=== PATIENT | female | born 1935 | race Caucasian/White ===

== ENCOUNTER 2021-08-06 04:23 | Day surgery (SDC) | payer OTHER, BC ==
[2021-08-04 12:44] VITALS: BMI 23.6
[2021-08-06] MEDS ORDERED: IBUPROFEN 800 MG/8 ML IJ IVPB SCH (09:00)
[2021-08-06] MEDS ORDERED: DEXTROSE 5%-0.45% SALINE 1,000 ML IV SCH (09:00)
[2021-08-06] MEDS ORDERED: PROPOFOL 20 ML ONE (09:06)
[2021-08-06] MEDS ORDERED: ceFAZolin SODIUM 1 GM VIAL IVPB ONE (09:30)
[2021-08-06] MEDS ORDERED: IOHEXOL 300 MG/ML INFUS..BTL IJ ONE ×2 (09:42)
[2021-08-06] MEDS ORDERED: LACTATED RINGERS SOLUTION 1,000 ML IV SCH (10:00)
[2021-08-06 10:44] VITALS: TEMP 98.8
[2021-08-06 12:17] VITALS: BP 142/74; PULSE 80
== END 2021-08-06 12:18 | disposition home or self-care (01) ==
LOC: JASU-SURG 04:23
PROVIDERS: ATTEND Urology
PROC: 0TJB8ZZ Inspection of Bladder, Via Natural or Artificial Opening Endoscopic (ICD-10-PCS; principal; 2021-08-06 08:30)
PROC: BT0BYZZ Plain Radiography of Bladder and Urethra using Other Contrast (ICD-10-PCS; 2021-08-06 08:30)
DX: N39.0 Urinary tract infection, site not specified (principal)
CPT/HCPCS: 76000-TC-FY; 94760

== ENCOUNTER 2022-10-09 04:14 | Day surgery (SDC) | payer OTHER, BC ==
[2022-10-06 10:52] VITALS: BMI 23.6
[~2022-10-09 04:14] MED LIST: LIDOCAINE 1% P/F 10 MG/ML VIAL INF ONE; LIDOCAINE 1% P/F 10 MG/ML VIAL PNB ONE
[2022-10-09] MEDS ORDERED: LIDOCAINE HCL/PF 1% SDV 5ML VIAL ONE (07:34)
[2022-10-09 08:06] VITALS: RESP 18
[2022-10-09] MEDS ORDERED: LIDOCAINE 1% P/F 10 MG/ML VIAL INF ONE ×2 (08:57)
[2022-10-09 10:21] VITALS: BP 143/48; PULSE 56; TEMP 97.7
== END 2022-10-09 10:45 | disposition home or self-care (01) ==
LOC: JASU-SURG 04:14
PROVIDERS: ATTEND Pain Medicine Pain Medicine
PROC: 01HY3MZ Insertion of Neurostimulator Lead into Peripheral Nerve, Percutaneous Approach (ICD-10-PCS; principal; 2022-10-09 09:30)
DX: G89.4 Chronic pain syndrome (principal); M54.9 Dorsalgia, unspecified
CPT/HCPCS: 64555; C1778; 76000-TC-FY

== ENCOUNTER 2023-01-20 16:31 | Emergency (ER) | payer OTHER, BC ==
[2023-01-20 16:56] VITALS: BP 170/68; PULSE 79; RESP 20; TEMP 98.2; BMI 23.6
[2023-01-20] MEDS ORDERED: DIPHTH,PERTUSS(ACELL),TET 0.5 ML DISP.SYRIN IM ONE ×2 (18:17→19:33)
== END 2023-01-20 19:53 | disposition home or self-care (01) ==
LOC: FER 16:31
PROC: 3E0234Z Introduction of Serum, Toxoid and Vaccine into Muscle, Percutaneous Approach (ICD-10-PCS; principal; 2023-01-20)
DX: S02.2XXA Fracture of nasal bones, initial encounter for closed fracture (principal); S05.10XA Contusion of eyeball and orbital tissues, unspecified eye, initial encounter; S00.83XA Contusion of other part of head, initial encounter; W10.8XXA Fall (on) (from) other stairs and steps, initial encounter; W22.8XXA Striking against or struck by other objects, initial encounter; Y92.007 Garden or yard of unspecified non-institutional (private) residence as the place of occurrence of the external cause
CPT/HCPCS: 70450-TC; 70486-TC; 72125-TC; 90471; 90715; 99284-25

== ENCOUNTER 2023-10-29 04:27 | Day surgery (SDC) | payer OTHER, BC ==
[2023-10-21 12:36] VITALS: BMI 23.6
[2023-10-29] MEDS: IOHEXOL 180 MG/1 ML ML IJ ONE
[2023-10-29] MEDS: LIDOCAINE HCL 1% PRESERVATIVE FREE - 30ML VIAL IJ ONE
[2023-10-29] MEDS ORDERED: LIDOCAINE HCL/PF 1% SDV 5ML VIAL ONE (07:30)
[2023-10-29] MEDS ORDERED: BUPIVACAINE HCL/PF 0.5% (5MG/ML) 10 ML VIAL ONE (07:30)
[2023-10-29] MEDS ORDERED: ACETAMINOPHEN 500 MG TABLET (FP) PO PRN (08:31)
[2023-10-29] MEDS: BUPIVACAINE HCL/PF 0.5% (5MG/ML) 10 ML VIAL IJ ONE ×2 (10:43)
[2023-10-29 11:15] VITALS: RESP 18
[2023-10-29 13:19] VITALS: BP 138/62; PULSE 60; TEMP 98
== END 2023-10-29 12:08 | disposition home or self-care (01) ==
LOC: JASU-SURG 04:27
PROVIDERS: ATTEND Pain Medicine Pain Medicine
PROC: 3E0T33Z Introduction of Anti-inflammatory into Peripheral Nerves and Plexi, Percutaneous Approach (ICD-10-PCS; 2023-10-29)
PROC: 3E0T3BZ Introduction of Anesthetic Agent into Peripheral Nerves and Plexi, Percutaneous Approach (ICD-10-PCS; principal; 2023-10-29 10:45)
DX: M47.812 Spondylosis without myelopathy or radiculopathy, cervical region (principal)
CPT/HCPCS: 76000-TC-FY

== ENCOUNTER → 2023-12-07 | Day surgery (SDC) | payer OTHER, BC ==
[2023-12-02 12:22] VITALS: BMI 23.6
[~2023-12-07] MED LIST changes: +ACETAMINOPHEN 500 MG TABLET (FP) PO PRN; +BUPIVACAINE HCL/PF 0.5% (5MG/ML) 10 ML VIAL ONE; -LIDOCAINE 1% P/F 10 MG/ML VIAL INF ONE; -LIDOCAINE 1% P/F 10 MG/ML VIAL PNB ONE; +LIDOCAINE HCL/PF 1% SDV 5ML VIAL ONE
[2023-12-07] MEDS: BUPIVACAINE HCL/PF 0.75% 10 ML VIAL NR ONE
[2023-12-07] MEDS: LIDOCAINE 1% P/F 10 MG/ML VIAL INF ONE
[2023-12-07 08:54] VITALS: TEMP 98.3
[2023-12-07] MEDS: BUPIVACAINE HCL/PF 0.5% (5MG/ML) 10 ML VIAL IJ ONE (10:49)
[2023-12-07 12:12] VITALS: BP 147/53; PULSE 72; RESP 18
== END | disposition home or self-care (01) ==
LOC: JASU-SURG 04:36
PROVIDERS: ATTEND Pain Medicine Pain Medicine
PROC: 3E0T33Z Introduction of Anti-inflammatory into Peripheral Nerves and Plexi, Percutaneous Approach (ICD-10-PCS; 2023-12-07)
PROC: 3E0T3BZ Introduction of Anesthetic Agent into Peripheral Nerves and Plexi, Percutaneous Approach (ICD-10-PCS; principal; 2023-12-07 10:30)
DX: M47.812 Spondylosis without myelopathy or radiculopathy, cervical region (principal)
CPT/HCPCS: 76000-TC-FY

== ENCOUNTER 2023-12-31 04:24 | Day surgery (SDC) | payer OTHER, BC ==
[2023-12-23 15:53] VITALS: BMI 23.6
[~2023-12-31 04:24] MED LIST changes: -BUPIVACAINE HCL/PF 0.5% (5MG/ML) 10 ML VIAL ONE; -LIDOCAINE HCL/PF 1% SDV 5ML VIAL ONE
[2023-12-31] MEDS ORDERED: DEXAMETHASONE SOD PHOSPHATE 10 MG/1 ML VIAL ONE (07:30)
[2023-12-31] MEDS ORDERED: LIDOCAINE HCL/PF 2% SDV 5ML VIAL ONE (07:30)
[2023-12-31] MEDS ORDERED: BUPIVACAINE HCL/PF 0.5% (5MG/ML) 10 ML VIAL ONE (07:30)
[2023-12-31] MEDS ORDERED: LIDOCAINE HCL/PF 1% SDV 5ML VIAL ONE (07:30)
[2023-12-31] MEDS: LIDOCAINE HCL/PF 2% SDV 5ML VIAL SQ ONE ×2 (13:29→13:37)
[2023-12-31] MEDS: BUPIVACAINE HCL/PF 0.5% (5MG/ML) 10 ML VIAL IJ ONE ×2 (13:30→13:43)
[2023-12-31] MEDS: DEXAMETHASONE SOD PHOSPHATE 10 MG/1 ML VIAL IVPUSH ONE ×2 (13:31→13:43)
[2023-12-31] MEDS: LIDOCAINE HCL 1%, 10 MG/ML (50 mL VIAL) SQ ONE (13:32)
[2023-12-31 14:05] VITALS: BP 128/72; PULSE 63; RESP 20; TEMP 97.3
== END 2023-12-31 14:32 | disposition home or self-care (01) ==
LOC: JASU-SURG 04:24
PROVIDERS: ATTEND Pain Medicine Pain Medicine
PROC: 01513ZZ Destruction of Cervical Nerve, Percutaneous Approach (ICD-10-PCS; principal; 2023-12-31 13:00)
DX: M47.812 Spondylosis without myelopathy or radiculopathy, cervical region (principal)
CPT/HCPCS: 76000-TC-FY; J1100